=== PATIENT | male | born 1985 | race Caucasian/White ===

== ENCOUNTER 2019-03-13 00:16 | Emergency (ER) | payer BC ==
[~2019-03-13] VITALS: Ht 154.9 cm; Wt 122.5 kg
[~2019-03-13 00:16] MED LIST: ALKA SELTZER; IBU800 MG PO; IBUPROFEN 30 M800 MG; LIDEX0.05% T; MOTRIN800 MG PO; NKHM; TAMIFLU75 MG PO; VICODIN ES 7501 TAB PO; ZITHROMAX250 MG PO
[2019-03-13] MEDS ORDERED: TAMIFLU 75MG CA75 MG PO (01:41)
== END 2019-03-13 01:56 | disposition home or self-care (01) ==
LOC: ED 00:16
DX: J10.1 Influenza due to other identified influenza virus with other respiratory manifestations (principal); Z88.8 Allergy status to other drugs, medicaments and biological substances; Z88.4 Allergy status to anesthetic agent

== ENCOUNTER → 2019-05-23 | Outpatient (CLI) | payer BC ==
[~2019-05-23] MED LIST changes: +TAMIFLU 75MG CA75 MG PO
== END | disposition home or self-care (01) ==
LOC: US 10:30
DX: K76.0 Fatty (change of) liver, not elsewhere classified (principal); R94.5 Abnormal results of liver function studies

== ENCOUNTER → 2019-05-24 | Outpatient (CLI) | payer BC | END | disposition home or self-care (01) | LOC: RAD 05-16 09:00 | DX: J98.6 Disorders of diaphragm (principal); G47.30 Sleep apnea, unspecified; R06.02 Shortness of breath; R05 Cough ==

== ENCOUNTER 2021-11-01 07:24 | Emergency (ER) | payer BC ==
[~2021-11-01] VITALS: Ht 180.3 cm; Wt 136.1 kg
[2021-11-01 07:57] LABS: BASO % 0.3 % (0.0-1.0); EOS # 0.2 10*3/uL (0.0-0.4); EOS % 1.6 % (1.0-4.0); HEMATOCRIT 44.7 % (42.0-52.0); LYMPH # 1.6 10*3/uL (1.3-4.4); LYMPH % 15.5 % (27.0-41.0); MEAN CELL VOLUME 83.6 fl (80.0-94.0); MEAN CORPUSCULAR HGB 28.4 pg (27.0-31.0); MEAN PLATELET VOLUME 9.4 fl (9.6-12.3); MONO # 0.6 10*3/uL (0.1-1.0); MONO % 5.4 % (3.0-9.0); NEUT # 8.1 10*3/uL (2.3-7.9); NEUT % 76.9 % (47.0-73.0); PLATELET COUNT AUTOMATED 267 10*3/uL (130-400); RED BLOOD COUNT 5.35 10*6/uL (4.50-5.90); RED CELL DISTRI WIDTH 13.5 % (0-14.5); WHITE BLOOD COUNT 10.5 10*3/uL (4.8-10.8)
[2021-11-01] MEDS ORDERED: TYLENOL325 M1 PO ×3 (08:16→08:48)
[2021-11-01] MEDS ORDERED: NAPROXEN250 MG PO ×3 (08:16→08:48)
[2021-11-01] MEDS ORDERED: PHENERGAN25 M3 PO ×3 (08:16→08:48)
[2021-11-01 08:18] LABS: ALKALINE PHOSPHATASE 79 U/L (45-117); BUN 12 mg/dl (7-24); CHLORIDE 104 mmol/L (98-107); CREATININE 1.33 mg/dL (0.70-1.30); LIPASE 166 U/L (73-393); POTASSIUM 4.2 mmol/L (3.5-5.1); SGOT/AST 29 IU/L (3-35); SGPT/ALT 97 U/L (12-78); SODIUM 136 mmol/L (136-145); TOTAL PROTEIN 8.5 gm/dL (6.4-8.2)
[2021-11-01] MEDS ORDERED: MORPHINE SULFAT15 MG PO (08:48)
== END 2021-11-01 08:52 | disposition home or self-care (01) ==
LOC: ED 07:24
PROVIDERS: Emergency Medicine
DX: N13.2 Hydronephrosis with renal and ureteral calculous obstruction (principal); R73.9 Hyperglycemia, unspecified; E66.01 Morbid (severe) obesity due to excess calories; Z68.32 Body mass index [BMI] 32.0-32.9, adult; Z88.8 Allergy status to other drugs, medicaments and biological substances; Z88.4 Allergy status to anesthetic agent

== ENCOUNTER 2024-07-03 23:20 | Emergency (ER) | payer BC ==
[~2024-07-03] VITALS: Ht 180.3 cm; Wt 129.3 kg
[~2024-07-03 23:20] MED LIST changes: +MORPHINE SULFAT15 MG PO; +NAPROXEN250 MG PO; +PHENERGAN25 M3 PO; +TYLENOL325 M1 PO
[2024-07-03 23:54] LABS: BASO % 0.2 % (0.0-1.0); EOS # 0.5 10*3/uL (0.0-0.4); EOS % 4.3 % (1.0-4.0); HEMATOCRIT 46.9 % (42.0-52.0); MEAN CELL VOLUME 83.3 fl (80.0-94.0); MEAN CORPUSCULAR HGB 28.6 pg (27.0-31.0); MEAN CORPUSCULAR HGB CONC 34.3 g/dl (33.0-37.0); MEAN PLATELET VOLUME 9.3 fl (9.6-12.3); MONO # 0.8 10*3/uL (0.1-1.0); MONO % 7.4 % (3.0-9.0); NEUT # 6.3 10*3/uL (2.3-7.9); NEUT % 60.4 % (47.0-73.0); PLATELET COUNT AUTOMATED 245 10*3/uL (130-400); RED BLOOD COUNT 5.63 10*6/uL (4.50-5.90); RED CELL DISTRI WIDTH 13.2 % (0-14.5); WHITE BLOOD COUNT 10.5 10*3/uL (4.8-10.8)
[2024-07-04 00:15] LABS: BUN 13 mg/dl (9-23); CHLORIDE 104 mmol/L (98-107)
== END 2024-07-04 01:06 | disposition home or self-care (01) ==
LOC: ED 23:20
PROVIDERS: Internal Medicine
DX: S60.221A Contusion of right hand, initial encounter (principal); R07.89 Other chest pain; F43.9 Reaction to severe stress, unspecified; R20.0 Anesthesia of skin; R20.2 Paresthesia of skin; Z88.8 Allergy status to other drugs, medicaments and biological substances; Z79.899 Other long term (current) drug therapy; W18.00XA Striking against unspecified object with subsequent fall, initial encounter; Y93.89 Activity, other specified; Y92.89 Other specified places as the place of occurrence of the external cause; Y99.8 Other external cause status